=== PATIENT | female | born 1950 | race African-American/Black ===

== ENCOUNTER → 2019-03-04 | Outpatient (CLI) | payer MEDICARE, MEDICAID ==
[2018-05-19 11:00] VITALS: BP 125/67
[~2019-03-04] MED LIST: ALLO100T PO; AMLO5TAB10 PO; PRAV40TA2 PO; RANI-348 PO
--- NOTE | 2019-03-04 16:26 | RAD ---
EXAM: Chest, 2 views. HISTORY: Fever. COMPARISON: None. FINDINGS: 2 views of the chest are obtained. There is no infiltrate, pleural effusion or pneumothorax. The heart is normal in size. IMPRESSION: No acute pulmonary finding. Electronically signed by: Nicki Soliz MD (03/04/2019 4:23 PM) [place] [id number]
== END | disposition home or self-care (01) ==
LOC: RAD 12:15
PROVIDERS: ATTEND Internal Medicine
DX: R50.9 Fever, unspecified (principal)
CPT/HCPCS: 71046